=== PATIENT | male | born 1990 | race Asian ===

== ENCOUNTER 2018-10-15 20:56 | Emergency (ER) | payer OTHER ==
[2018-10-15 21:08] VITALS: BP 118/67
--- NOTE | 2018-10-15 21:27 | UC ---
Laceration HPI - HPI Summary HPI Summary: patient was hit with a raquet while play squash. superfical laceration above the left eye perpendicular to the eyebrow - History Of Current Complaint Chief Complaint: UCLaceration Stated Complaint: EYEBROW LACERATION Time Seen by Provider: 10/15/18 21:04 Hx Obtained From: Patient Laceration Location: Face Mechanism Of Injury: Blunt Trauma Onset/Duration: Sudden Onset, Lasting Minutes Severity: Moderate Pain Intensity: 6 - Allergies/Home Medications Allergies/Adverse Reactions: Allergies Allergy/AdvReac Type Severity Reaction Status Date / Time No Known Allergies Allergy Verified 10/15/18 21:09 Home Medications: Home Medications NK [No Home Medications Reported] 10/15/18 [History Confirmed 10/15/18] PMH/Surg Hx/FS Hx/Imm Hx Previously Healthy: Yes - Surgical History Surgical History: None - Family History Known Family History: Negative: Cardiac Disease, Hypertension - Social History Alcohol Use: Weekly Alcohol Amount: 2X Substance Use Type: None Smoking Status (MU): Never Smoked Tobacco Review of Systems All Other Systems Reviewed And Are Negative: Yes Skin: Positive: Other - laceration Is Patient Immunocompromised?: No Physical Exam Triage Information Reviewed: Yes Appearance: Well-Appearing, Well-Nourished, Pain Distress Vital Signs: Initial Vital Signs Temp 98.5 F 10/15/18 21:04 Pulse 89 10/15/18 21:04 Resp 16 10/15/18 21:04 BP 118/67 10/15/18 21:04 Pulse Ox 99 10/15/18 21:04 Vital Signs Reviewed: Yes Eye Exam: Normal ENT Exam: Normal Dental Exam: Normal Neck exam: Normal Respiratory Exam: Normal Cardiovascular Exam: Normal Abdominal Exam: Normal Bowel Sounds: Positive: Present Musculoskeletal Exam: Normal Neurological Exam: Normal Psychological Exam: Normal Skin: Positive: Other - 1.5 cm superficial laceration to the left eye brow, mild swelling to the loacalized area Laceration Course/Dx - Course/Dx Course Of Treatment: hx obtained,exam performed, meds reviewed, laceration glued and steri striped. - Differential Dx - Laceration/Wound Differental Diagnoses: Laceration - Diagnosis Provider Diagnosis: Laceration of face without complication Discharge - Sign-Out/Discharge Documenting (check all that apply): Patient Departure All imaging exams completed and their final reports reviewed: No Studies - Discharge Plan Condition: Stable Disposition: HOME Patient Education Materials: Laceration (ED) Referrals: No Primary Care Phys,NOPCP [Primary Care Provider] - Additional Instructions: 1. keep area clean and dry 2. Allow the steri strips to fall off on their own. 3. Follow up with any sign of infection - Billing Disposition and Condition Condition: STABLE Disposition: Home
== END 2018-10-15 21:31 | disposition home or self-care (01) ==
LOC: UCEAST 20:56
DX: S01.111A Laceration without foreign body of right eyelid and periocular area, initial encounter (principal); X58.XXXA Exposure to other specified factors, initial encounter; Y93.73 Activity, racquet and hand sports; Y92.9 Unspecified place or not applicable
CPT/HCPCS: 12011; 99202; G0463